=== PATIENT | female | born 1960 | race Caucasian/White ===

== ENCOUNTER → 2020-08-12 | Day surgery (SDC) | payer BC ==
--- NOTE | 2020-08-12 15:35 | MMO ---
Stereotactic guided biopsy right breast microcalcifications Surgical specimen mammography Right diagnostic mammogram post biopsy HISTORY: Abnormal mammogram. Microcalcifications. FINDINGS: After explaining the procedure and answering all questions, the microcalcification cluster at the inferior medial aspect of the left breast were visualized from a superior approach. Lateral views did not reliably identify the calcifications. Sterile technique, buffered local anesthesia, stereotactic guidance, and a superior approach were use d to carefully advance a 10-gauge vacuum-assisted biopsy needle into the microcalcification cluster. Position confirmed with stereotactic imaging. 6 specimens were initially obtained. Surgical specimen mammography showed a few faint calcifications. Multiple additional specimens were obtained in attempt to retrieve the entirety of the calcifications. The additional samples never confidently showed all of the calcifications. Localization clip was placed in the biopsy bed under stereotactic guidance. Needle was removed. Yamileth rodrigues tolerated the procedure well and was eventually dismissed in good condition. Postprocedure mammographic images show small pockets of gas along the biopsy bed, extending as far in feriorly as the remaining microcalcifications of the cluster. The superiormost portion of the cluster appears to have been removed. The clip lies approximately 3.0 cm superior to the remaining ca lcifications, likely having been partially withdrawn during needle removal. IMPRESSION : Technically successful stereotactic guided biopsy right breast microcalcifications. Pathology is pend ing.
== END ==
LOC: MAMMO 07:30
PROVIDERS: ATTEND Obstetrics & Gynecology
PROC: 0HBT3ZX Excision of Right Breast, Percutaneous Approach, Diagnostic (ICD-10-PCS; principal; 2020-08-12)
DX: N60.21 Fibroadenosis of right breast (principal); D24.1 Benign neoplasm of right breast; N62 Hypertrophy of breast; N60.81 Other benign mammary dysplasias of right breast
CPT/HCPCS: 19081; 76098; 88305